=== PATIENT | female | born 1990 | race Caucasian/White ===

== ENCOUNTER 2021-12-20 17:11 | Outpatient (REF) | payer BC, SELFPAY ==
--- NOTE | 2021-12-20 15:45 | PAPFT_PTH ---
PATIENT: Maryam Sanches LOC: [facility] U#:[id number] AGE/SX: 31/F ROOM: RE12/20/[address]: Yuri Marx : 1990 BED: DIS: 12/20/2021 SPEC #: [id number] RECD: 12/20/21 18:08 STATUS: ARI REVj #: [id number] DEVONTE: 12/20/21 15:[address]: Yuri Marx DEPT: [facility]LY [facility] Cytology RECD BY: Chayo Gonzalez ENTERED: 12/20/21 18:08 SP TYPE: PAPFT GABRIELE DR: Samantha Duvall, PhD [employer] Tissues: 1 - CX/ENDOCX FOR PAP SMEARS Procedures: PAP THIN PREP/[facility] Screening HPV DNA PROBE Comments: [id number]
== END 2021-12-20 17:12 | disposition home or self-care (01) ==
LOC: LBN 17:11
PROVIDERS: PCP Nurse Practitioner; Visit Provider Family Medicine
DX: Z12.4 Encounter for screening for malignant neoplasm of cervix (principal); Z11.51 Encounter for screening for human papillomavirus (HPV)
CPT/HCPCS: 88142; 87624

== ENCOUNTER 2022-01-16 04:55 | Outpatient (CLI) | payer BC, SELFPAY ==
[2022-01-16 12:24] LABS: HCT 40.6 % (36.0-46.0); HGB 13.5 g/dL (11.2-15.7); MCH 30.1 pg (27.0-33.0); MCHC 33.3 % (32.0-36.0); MCV 90.6 fL (80-95); Platelet Count 234 10^3/uL (130-400); RBC 4.48 10^6/uL (3.93-5.22); RDW-SD 39.8 fL; WBC 6.58 10^3/uL (4.4-10.8)
[2022-01-16 12:42] LABS: Anion Gap 10.3 mmol/L (3-11); BUN 17 mg/dL (7-18); CO2 27.7 mmol/L (21.0-32.0); CREATININE 0.6 mg/dL (0.55-1.02); Calculated LDL 116 mg/dL (<100); Chloride 101 mmol/L (98-107); Cholesterol 198 mg/dL (<200); Glucose 82 mg/dL (74-106); HDL Cholesterol 64 mg/dL (40-60); Potassium 3.8 mmol/L (3.5-5.1); Sodium 139 mmol/L (136-145); Triglyceride 93 mg/dL (<150)
[2022-01-17 09:51] LABS: Hepatitis C Ab w Rflx HCV PCR Negative (Negative)
== END 2022-01-16 04:56 | disposition home or self-care (01) ==
PROVIDERS: PCP Nurse Practitioner; Visit Provider Family Medicine
DX: D64.9 Anemia, unspecified (principal); Z13.6 Encounter for screening for cardiovascular disorders; Z11.59 Encounter for screening for other viral diseases
CPT/HCPCS: 36415; 80048; 80061; 85027; 86803

== ENCOUNTER 2023-12-27 16:36 | Outpatient (REF) | payer BC, SELFPAY ==
--- NOTE | 2023-12-27 15:00 | SKI_PTH ---
PATIENT: Maryam Sanches LOC: [facility] U#:[id number] AGE/SX: 33/F ROOM: RE12/27/[address]: Liv Patrick NP : 1990 BED: DIS: 12/27/2023 SPEC #: [id number] RECD: 12/28/23 09:23 STATUS: ARI BECKMAN #: [id number] DEVONTE: 12/27/23 15:[address]: Liv Patrick DEPT: Surgical Specimen RECD BY: Chayo Gonzalez Tissues: 1 - SKIN BIOPSY(SHAVE/PUNCH) Procedures: SKIN LEVEL 4 Comments: [id number]
== END 2023-12-27 16:37 | disposition home or self-care (01) ==
LOC: LBN 16:36
PROVIDERS: PCP Nurse Practitioner Family; Visit Provider Nurse Practitioner Family
DX: D22.5 Melanocytic nevi of trunk (principal)
CPT/HCPCS: 88305

== ENCOUNTER 2025-01-12 03:26 | Outpatient (CLI) | payer BC, SELFPAY ==
[2025-01-12 12:12] LABS: HCT 39.5 % (36.0-46.0); HGB 13.4 g/dL (11.2-15.7); MCH 30.7 pg (27.0-33.0); MCHC 33.9 % (32.0-36.0); MCV 90 fL (80-95); MPV 11.4 fL (8.0-11.0); Platelet Count 233 10^3/uL (130-400); RBC 4.37 10^6/uL (3.93-5.22); RDW 12.4 % (11.7-14.6); RDW-SD 40.7 fL; WBC 6.12 10^3/uL (4.4-10.8)
[2025-01-12 12:38] LABS: ALT 22 U/L (14-59); AST 10 U/L (15-37); Alkaline Phosphatase 59 U/L (46-116); Anion Gap 4.7 mmol/L (3-11); BUN 13 mg/dL (7-18); CO2 32.3 mmol/L (21.0-32.0); CREATININE 0.8 mg/dL (0.55-1.02); Calcium 9.3 mg/dL (8.5-10.1); Calculated LDL 87 mg/dL (<100); Chloride 106 mmol/L (98-107); Cholesterol 169 mg/dL (<200); Estimated GFR 97.87 (mL/min/1.73m2); Glucose 89 mg/dL (74-106); HDL Cholesterol 68 mg/dL (>or=50); Sodium 143 mmol/L (136-145); TSH (W/Ref FT4) 0.89 uIU/mL (0.36-3.74); Total Protein 6.9 g/dL (6.4-8.2); Triglyceride 70 mg/dL (<150)
== END 2025-01-12 03:27 | disposition home or self-care (01) ==
LOC: LOS 03:26
PROVIDERS: PCP Nurse Practitioner Family; Visit Provider Nurse Practitioner Family
DX: Z00.00 Encounter for general adult medical examination without abnormal findings (principal)
CPT/HCPCS: 36415; 80053; 80061; 85027; 83036; 84443